=== PATIENT | female | born 2000 | race Two or more races ===

== ENCOUNTER 2024-06-05 10:08 | Outpatient (REF) | payer MEDICAID, SELFPAY ==
[2024-06-05 12:19] LABS: Influenza A PCR NEGATIVE (Negative); Influenza B PCR NEGATIVE (Negative); Resp Syncy Virus RNA Qual PCR NEGATIVE (Negative); SARS COV2 PCR INHOUSE NEGATIVE (Negative)
== END 2024-06-05 10:09 | disposition home or self-care (01) ==
LOC: HO.LAB 10:08
PROVIDERS: PCP Nurse Practitioner Family; Visit Provider Internal Medicine Medical Oncology
DX: Z11.52 Encounter for screening for COVID-19 (principal)
CPT/HCPCS: 0241U